=== PATIENT | male | born 1995 ===

== ENCOUNTER 2017-02-14 22:44 | Emergency (ER) | payer MEDICAID ==
[2017-02-14 22:56] VITALS: BP 134/77; PULSE 69; RESP 18; TEMP 98.4; O2SAT 99
[2017-02-14] MEDS ORDERED: Naproxen 550 mg Tab PO STA (23:29)
--- NOTE | 2017-02-14 23:31 | C.PDOC ---
History Of Present Illness 21 yo male c/o left sided back pain that started today. No trauma. Notes the he was sweeping and felt a pull in his back. No change in sensation. No urinary or bowel incontinence. No dysuria or urinary frequency. No N/v. Notes h/o back pain in the past that self resolves in 1-2 days. Pt did not try any over the counter medication, but did used topical patch. Time Seen by Provider: 02/14/17 22:58 Chief Complaint (Nursing): Back Pain History Per: Patient History/Exam Limitations: no limitations Onset/Duration Of Symptoms: Hrs Current Symptoms Are (Timing): Still Present Past Medical History Vital Signs: Last Vital Signs Temp 98.4 F 02/14/17 22:54 Pulse 69 02/14/17 22:54 Resp 18 02/14/17 22:54 BP 134/77 02/14/17 22:54 Pulse Ox 99 02/14/17 23:31 Family History: States: Unknown Family Hx - Social History Hx Alcohol Use: Yes Hx Substance Use: No - Immunization History Hx Tetanus Toxoid Vaccination: No Hx Influenza Vaccination: No Hx Pneumococcal Vaccination: No Review Of Systems Except As Marked, All Systems Reviewed And Found Negative. Genitourinary: Negative for: Dysuria, Incontinence Musculoskeletal: Positive for: Back Pain Physical Exam - Physical Exam Appears: Well, Non-toxic, No Acute Distress Skin: Normal Color, Warm, Dry Head: Atraumatic Eye(s): bilateral: Normal Inspection, EOMI Nose: Normal Neck: Normal, Normal ROM, Supple Chest: Symmetrical Cardiovascular: Rhythm Regular Respiratory: Normal Breath Sounds Gastrointestinal/Abdominal: Normal Exam, Soft, No Tenderness Back: No CVA Tenderness, No Vertebral Tenderness, Paraspinal Tenderness ((+) left sided paralumbar and buttuck tenderness) Extremity: Normal ROM Extremity: Bilateral: Atraumatic Pulses: Left Dorsalis Pedis: Normal, Right Dorsalis Pedis: Normal Neurological/Psych: Oriented x3, Normal Speech, Normal Cognition, Normal Motor, Normal Sensation Gait: Steady ED Course And Treatment O2 Sat by Pulse Oximetry: 99 - Other Rad l/s XR X-Ray: Interpreted by Me, Viewed By Me Interpretation: No fx or dislocation Progress Note: Naprosyn ordered. On reassessment, patient resting comfortably, no longer having back pain, no fever, no bony tenderness, no numbness, no weakness, no abdominal pain. Patient is ambulatory in the emergency department with no discomfort. Patient was instructed to follow up with physician/clinic in 1-2 days for further evaluation or return to ED if symptoms persist or worsen. Disposition - Disposition Referrals: Rajan Adam MD [Primary Care Provider] - Disposition: HOME/ ROUTINE Disposition Time: 23:30 Condition: STABLE Additional Instructions: Rest and ice the area. Follow up with your PMD in 1-2 days. Prescriptions: Naproxen [Naprosyn] 1 tab PO BID PRN #25 tab PRN Reason: Pain Instructions: Acute Low Back Pain (ED) - Clinical Impression Clinical Impression: Low back strain
[2017-02-14] MEDS ORDERED: Naproxen 550 mg Tab PO ONE (23:36)
--- NOTE | 2017-02-15 09:24 | RAD ---
PROCEDURE: Radiographs of the Lumbar Spine. HISTORY: pain COMPARISON: No prior. FINDINGS: BONES: No acute compression fractures nor retropulsed fragments. Vertebral bodies exhibit normal stature. Pedicles intact. DISC SPACES: Disc space heights relatively maintained. No significant facet arthropathy OTHER FINDINGS: None. IMPRESSION: No acute fractures nor significant degenerative spondylosis.
== END 2017-02-15 00:20 | disposition home or self-care (01) ==
LOC: C.ER 22:44 → SUPCPDRO 22:44 → C.ER 02-15 00:20
DX: S39.012A Strain of muscle, fascia and tendon of lower back, initial encounter (principal); X50.3XXA Overexertion from repetitive movements, initial encounter; Y93.E9 Activity, other interior property and clothing maintenance; Y92.009 Unspecified place in unspecified non-institutional (private) residence as the place of occurrence of the external cause